=== PATIENT | female | born 1945 | race African-American/Black ===

== ENCOUNTER → 2018-05-03 | Day surgery (SDC) | payer OTHER, MEDICARE ==
[2018-05-01 12:27] LABS: BASOPHILS # (AUTO) 0.1 (0.0-0.1); BASOPHILS % 0.8 % (0.0-1.0); EOSINOPHILS # (AUTO) 0.2 (0.0-0.4); EOSINOPHILS % 1.6 % (0.0-6.0); HEMATOCRIT 31.6 % (34.2-44.1); HEMOGLOBIN 9.4 g/dL (12.0-16.0); LYMPHOCYTES # (AUTO) 3.2 (1.0-3.2); LYMPHOCYTES % 34.8 % (18.0-39.1); MEAN CORPUSCULAR HEMOGLOBIN 19.8 pg (28-32); MEAN CORPUSCULAR HGB CONC 29.7 g/dL (31-35); MEAN CORPUSCULAR VOLUME 66.5 fL (81-99); MONOCYTES # (AUTO) 0.8 (0.2-0.8); MONOCYTES % 8.2 % (4.4-11.3); NEUTROPHILS % 54.3 % (38.7-80.0); PLATELET COUNT 246 x10e3/uL (140-360); RED BLOOD COUNT 4.75 x10e6/uL (3.6-5.1); RED CELL DISTRIBUTION WIDTH 18.6 % (11.7-14.4)
[~2018-05-03] MED LIST: CIPRO500 MG PO; GLIPIZIDE5 MG PO; LOSARTAN POTAS100 MG PO; METOPROLOL SUCC50 MG PO; MULTI-VITAMIN1 EACH PO; NIFEDIPINE10 MG PO; PROPOFOL IV EMULSION 10 MG/ML 20 ML VIAL ONE; SIMVASTATIN20 MG PO
--- OUTSIDE RECORDS SUMMARY | 2018-05-03 06:55 | XMS REPORT | Clinical Summary ---
Author Author [facility] Organization [facility] Address Unknown Phone Unavailable Care Team Providers Care Chairman & Chief Executive Officer Name Role Phone Mateusz Camacho MD PCP Allergies No Known Allergies Medications End Date Status Medication Sig Dispensed Refills Start Date 04/07/2018 metroNIDAZOLE (FLAGYL) Take 1 tablet 21 tablet 0 500 MG tablet (500 mg 8 total) by mouth 3 (three) times a day for 7 days. 04/10/2018 ciprofloxacin (CIPRO) 500 Take 1 tablet 20 tablet 0 MG tablet (500 mg 8 total) by mouth 2 (two) times a day for 10 days. 05/01/2018 NIFEdipine XL (PROCARDIA Take 1 tablet 30 tablet 0 XL) 30 MG 24 hr tablet (30 mg total) 8 by mouth daily for 30 days. Active Problems Problem Noted Date C. difficile colitis 03/31/2018 Hydroureter 03/31/2018 Elevated lactic acid level 03/27/2018 Anemia 03/27/2018 Overview: Added automatically from request for surgery [id number] Heme positive stool 03/27/2018 Overview: Added automatically from request for surgery [id number] Hematochezia 03/27/2018 Overview: Added automatically from request for surgery [id number] Encounters Care Team Description Date Type Specialty Viet Lloyd MD COLONOSCOPY with bx and inject with 1cc of spot dye 03/30/2018 Surgery Gastroenterology [place] MD 03/30/2018 Anesthesia Gastroenterology Event Viet Lloyd MD ESOPHAGOGASTRODUODENOSCOPY (EGD) with bx 03/29/2018 Surgery Gastroenterology [place] MD 03/29/2018 Anesthesia Gastroenterology Event Leonidas Rosa MD BuiMarcy MD Elevated lactic acid level (Primary Dx); Hyperglycemia; Anemia, unspecified type; Non-insulin dependent type 2 diabetes mellitus (HCC); Secondary hypertension; Hydroureter; Renal calculus, bilateral; Heme positive stool; Hematochezia 03/27/2018 [facility] General Internal Medicine - Encounter 03/31/2018 after 05/02/2017 Social History Date Tobacco Use Types Packs/Day Years Used Never Smoker Smokeless Tobacco: Never Used Alcohol Use Drinks/Week oz/Week Comments No Sex Assigned at Date Recorded Not on file Industry Job Start Date Occupation Not on file Not on file Not on file Travel End Travel History Travel Start No recent travel history available. Last Filed Vital Signs Time Taken Vital Sign Reading 03/31/2018 11:33 AM [employer] ENGINE[employer] Blood Pressure 137/72 03/31/2018 11:33 AM SALVAGE ENGINEER Pulse 76 03/31/2018 11:33 AM SALVAGE ENGINEER Temperature 36.3 C (97.3 F) 03/31/2018 11:33 AM SALVAGE ENGINEER Respiratory Rate 17 03/31/2018 11:33 AM SALVAGE ENGINEER Oxygen Saturation 100% - Inhaled Oxygen - Concentration 03/27/2018 1:25 AM SALVAGE ENGINEER Weight 65.8 kg (145 lb) 03/27/2018 1:25 AM SALVAGE ENGINEER Height 162.6 cm (5' 4") 03/27/2018 1:25 AM SALVAGE ENGINEER Body Mass Index 24.89 Plan of Treatment Health Maintenance Due Date Last Done Comments DIABETIC RETINAL EYE EXAM 1945 DIABETIC FOOT EXAM 12/03/1957 URINE MICROALBUMIN 12/03/1957 SHINGRIX VACCINE (1 of 2) 12/03/1997 ZOSTER VACCINE 2007 PNEUMOCOCCAL 12/03/2012 POLYSACCHARIDE VACCINE AGE 65 AND OVER PNEUMOCOCCAL-13 12/03/2012 BREAST CANCER SCREENING 08/21/2015 08/20/2013, 07/16/2013 INFLUENZA VACCINE 12/21/2017 COLON CANCER SCREENING 03/28/2028 03/28/2018 Procedures Comments Procedure Name Priority Date/Time Associated Diagnosis POC GLUCOSE Routine 03/31/2018 11:32 AM SALVAGE ENGINEER HEMOGLOBIN & HEMATOCRIT STAT 03/31/2018 10:05 AM SALVAGE ENGINEER POC GLUCOSE Routine 03/31/2018 7:08 AM SALVAGE ENGINEER ESTIMATED GFR Routine 03/31/2018 5:09 AM SALVAGE ENGINEER HEPATIC FUNCTION PANEL Routine 03/31/2018 5:09 AM SALVAGE ENGINEER HC COMPLETE BLD COUNT Routine 03/31/2018 W/AUTO DIFF 5:09 AM SALVAGE ENGINEER BASIC METABOLIC PANEL Routine 03/31/2018 5:09 AM SALVAGE ENGINEER POC GLUCOSE Routine 03/30/2018 10:06 PM SALVAGE ENGINEER POC GLUCOSE Routine 03/30/2018 4:[address] ABDOMEN PELVIS WO STAT 03/30/2018 CONTRAST 1:07 PM SALVAGE ENGINEER POC GLUCOSE Routine 03/30/2018 1:04 PM SALVAGE ENGINEER TOTAL IRON BINDING STAT 03/30/2018 CAPACITY 12:45 PM SALVAGE ENGINEER FERRITIN LEVEL STAT 03/30/2018 12:45 PM SALVAGE ENGINEER VITAMIN B12 LEVEL STAT 03/30/2018 12:45 PM SALVAGE ENGINEER COLONOSCOPY 03/30/2018 Hematochezia 12:00 PM [employer]VAGE ENGINEER SURGICAL PATHOLOGY Routine 03/30/2018 REQUEST 11:19 AM SALVAGE ENGINEER POC GLUCOSE Routine 03/30/2018 5:21 AM SALVAGE ENGINEER POC GLUCOSE Routine 03/29/2018 10:06 PM SALVAGE ENGINEER POC GLUCOSE Routine 03/29/2018 3:57 PM SALVAGE ENGINEER SURGICAL PATHOLOGY Routine 03/29/2018 REQUEST 2:05 PM SALVAGE ENGINEER ESOPHAGOGASTRODUODENOSCOP 03/29/2018 Anemia, unspecified type Y (EGD) 12:30 PM SALVAGE ENGINEER Heme positive stool ESTIMATED GFR STAT 03/29/2018 10:10 AM SALVAGE ENGINEER HEPATIC FUNCTION PANEL STAT 03/29/2018 10:10 AM SALVAGE ENGINEER HC COMPLETE BLD COUNT STAT 03/29/2018 W/AUTO DIFF 10:10 AM SALVAGE ENGINEER BASIC METABOLIC PANEL STAT 03/29/2018 10:10 AM SALVAGE ENGINEER POC GLUCOSE Routine 03/29/2018 6:08 AM SALVAGE ENGINEER XR ABDOMEN 1 VW PORTABLE Routine 03/28/2018 6:51 PM SALVAGE ENGINEER POC GLUCOSE Routine 03/28/2018 6:35 PM SALVAGE ENGINEER POC GLUCOSE Routine 03/28/2018 5:05 PM SALVAGE ENGINEER POC GLUCOSE Routine 03/28/2018 12:21 PM SALVAGE ENGINEER HEMOGLOBIN & HEMATOCRIT STAT 03/28/2018 11:34 AM SALVAGE ENGINEER POC GLUCOSE Routine 03/28/2018 11:15 AM SALVAGE ENGINEER OCCULT BLOOD, STOOL Routine 03/28/2018 10:45 AM SALVAGE ENGINEER GASTROINTESTINAL PANEL Routine 03/28/2018 10:45 AM SALVAGE ENGINEER POC GLUCOSE Routine 03/28/2018 8:57 AM SALVAGE ENGINEER ESTIMATED GFR Routine 03/28/2018 5:30 AM SALVAGE ENGINEER HEPATIC FUNCTION PANEL Routine 03/28/2018 5:30 AM SALVAGE ENGINEER VITAMIN B12 LEVEL Routine 03/28/2018 5:30 AM SALVAGE ENGINEER FERRITIN LEVEL Routine 03/28/2018 5:30 AM SALVAGE ENGINEER HEMOGLOBIN A1C Routine 03/28/2018 5:30 AM SALVAGE ENGINEER HC COMPLETE BLD COUNT Routine 03/28/2018 W/AUTO DIFF 5:30 AM SALVAGE ENGINEER BASIC METABOLIC PANEL Routine 03/28/2018 5:30 AM SALVAGE ENGINEER POC GLUCOSE Routine 03/27/2018 9:42 PM SALVAGE ENGINEER POC GLUCOSE Routine 03/27/2018 5:23 PM SALVAGE ENGINEER POC GLUCOSE Routine 03/27/2018 11:22 AM SALVAGE ENGINEER ESTIMATED GFR STAT 03/27/2018 8:31 AM SALVAGE ENGINEER PHOSPHORUS LEVEL STAT 03/27/2018 8:31 AM SALVAGE ENGINEER MAGNESIUM LEVEL STAT 03/27/2018 8:31 AM SALVAGE ENGINEER AMYLASE LEVEL STAT 03/27/2018 8:31 AM SALVAGE ENGINEER LIPASE LEVEL STAT 03/27/2018 8:31 AM SALVAGE ENGINEER HC COMPLETE BLD COUNT STAT 03/27/2018 W/AUTO DIFF 8:31 AM SALVAGE ENGINEER BASIC METABOLIC PANEL STAT 03/27/2018 8:31 AM SALVAGE ENGINEER LACTIC ACID LEVEL, SEPSIS Timed 03/27/2018 - NOW AND REPEAT 2X EVERY 8:31 AM SALVAGE ENGINEER 3 HOURS LACTIC ACID LEVEL, SEPSIS Timed 03/27/2018 - NOW AND REPEAT 2X EVERY 5:01 AM SALVAGE ENGINEER [address] ABDOMEN PELVIS W STAT 03/27/2018 CONTRAST 4:07 AM SALVAGE ENGINEER BETA HYDROXYBUTYRATE Routine 03/27/2018 3:42 AM SALVAGE ENGINEER VENOUS BLOOD GAS Routine 03/27/2018 3:42 AM SALVAGE ENGINEER URINALYSIS SCREEN AND STAT 03/27/2018 MICROSCOPY, WITH REFLEX 2:30 AM SALVAGE ENGINEER TO CULTURE URINE CULTURE STAT 03/27/2018 2:30 AM SALVAGE ENGINEER LIPASE LEVEL Routine 03/27/2018 1:57 AM SALVAGE ENGINEER LACTIC ACID LEVEL, SEPSIS STAT 03/27/2018 - NOW AND REPEAT 2X EVERY 1:57 AM SALVAGE ENGINEER 3 HOURS ESTIMATED GFR Routine 03/27/2018 1:57 AM SALVAGE ENGINEER COMPREHENSIVE METABOLIC Routine 03/27/2018 PANEL 1:57 AM SALVAGE ENGINEER HC COMPLETE BLD COUNT Routine 03/27/2018 W/AUTO DIFF 1:57 AM SALVAGE ENGINEER ECG ED PRELIMINARY Routine 03/27/2018 INTERPRETATION 1:56 AM SALVAGE ENGINEER ECG 12-LEAD STAT 03/27/2018 1:48 AM SALVAGE ENGINEER after 05/02/2017 Results * POC glucose (03/31/2018 11:32 AM SALVAGE ENGINEER) Only the most recent of 17 results within the time period is included. POC glucose 256 (H) 65 - 100 mg/dL [facility] Comment: PATHOLOGY AND Meter ID: [id number] GENOMIC MEDICINE User Experience Team Lead: Maria E Wallace Performing Organization Address City/[facility] Corporationcode Phone Number [facility] [place] [place] [phone] PATHOLOGY AND [employer] MEDICINE * Hemoglobin & hematocrit (03/31/2018 10:05 AM SALVAGE ENGINEER) Only the most recent of 2 results within the time period is included. HGB 9.2 (L) 11.5 - 15.3 g/dL [facility] OF PATHOLOGY AND GENOMIC MEDICINE HCT 31.0 (L) 34.0 - 45.0 % [facility] OF PATHOLOGY AND [employer] MEDICINE Specimen Blood Performing Organization Address City/[facility] Corporationcode Phone Number [facility] [address] [facility] [place] [place] [phone] PATHOLOGY AND [employer] MEDICINE * Estimated GFR (03/31/2018 5:09 AM SALVAGE ENGINEER) Only the most recent of 5 results within the time period is included. Estimated GFR 59 (A) mL/min/1.73 m2 [facility] Comment: PATHOLOGY AND [employer] GENOMIC MEDICINE rpretation G1 >=90 Normal or high G2 60-89Mildly decreased [id number] Mildly to moderately decreased [id number] Moderately to severely decreased G4 15-29Severely decreased G5 <15Kidney failure The eGFR was calculated using the Chronic Kidney Disease Epidemiology Collaboration (CKD-EPI) equation. Interpretation is based on recommendations of the National Kidney Foundation-Kidney Disease Outcomes Quality Initiative (NKF-KDOQI) published in 2014. Specimen Plasma specimen Performing Organization Address City/[facility] Corporationcode Phone Number [facility] [place] [phone] PATHOLOGY AND [employer] MEDICINE * CBC with platelet and differential (03/31/2018 5:09 AM SALVAGE ENGINEER) Only the most recent of 5 results within the time period is included. WBC 6.8 4.2 - 11.0 k/uL [facility] OF PATHOLOGY AND GENOMIC MEDICINE RBC 4.23 4.04 - 5.86 m/uL [facility] OF PATHOLOGY AND GENOMIC MEDICINE HGB 8.3 (L) 11.5 - 15.3 g/dL [facility] OF PATHOLOGY AND GENOMIC MEDICINE HCT 27.7 (L) 34.0 - 45.0 % [facility] OF PATHOLOGY AND GENOMIC MEDICINE MCV 65.5 (L) 80.0 - 98.0 fL [facility] OF PATHOLOGY AND GENOMIC MEDICINE MCH 19.6 (L) 27.0 - 34.0 pg [facility] OF PATHOLOGY AND GENOMIC MEDICINE MCHC 30.0 (L) 31.5 - 36.5 g/dL [facility] OF PATHOLOGY AND GENOMIC MEDICINE RDW - SD 44.4 37.0 - 51.0 fL [facility] OF PATHOLOGY AND GENOMIC MEDICINE MPV 10.5 (H) 7.4 - 10.4 fL [facility] OF PATHOLOGY AND GENOMIC MEDICINE Platelet count 227 150 - 400 k/uL [facility] PATHOLOGY AND GENOMIC MEDICINE Nucleated RBC 0.00 /100 WBC [facility] OF PATHOLOGY AND GENOMIC MEDICINE Neutrophils 46.1 36.0 - 66.0 % [facility] OF PATHOLOGY AND GENOMIC MEDICINE Lymphocytes 39.4 24.0 - 44.0 % [facility] OF PATHOLOGY AND GENOMIC MEDICINE Monocytes 11.0 (H) 0.0 - 6.0 % [facility] OF PATHOLOGY AND GENOMIC MEDICINE Eosinophils 2.5 0.0 - 6.0 % [facility] OF PATHOLOGY AND GENOMIC MEDICINE Basophils 0.7 0.0 - 1.2 % [facility] PATHOLOGY AND GENOMIC MEDICINE Immature granulocytes 0.3 0.0 - 1.0 % [facility] OF PATHOLOGY AND GENOMIC MEDICINE Specimen Blood Performing Organization Address City/State/Zipcode Phone Number [facility] [address] [place] [address] PATHOLOGY AND GENOMIC MEDICINE * Hepatic function panel (03/31/2018 5:09 AM SALVAGE ENGINEER) Only the most recent of 3 results within the time period is included. Albumin 3.3 (L) 3.5 - 5.0 g/dL [facility] PATHOLOGY AND GENOMIC MEDICINE Total bilirubin 0.3 0.2 - 1.2 mg/dL [facility] OF PATHOLOGY AND GENOMIC MEDICINE Bilirubin direct <0.2 0.0 - 0.4 mg/dL [facility] OF PATHOLOGY AND GENOMIC MEDICINE Alkaline phosphatase 48 0 - 104 U/L [facility] OF PATHOLOGY AND GENOMIC MEDICINE Protein 6.3 6.3 - 8.3 g/dL [facility] OF PATHOLOGY AND GENOMIC MEDICINE ALT 9 5 - 50 U/L [facility] OF PATHOLOGY AND GENOMIC MEDICINE AST 16 10 - 35 U/L [facility] PATHOLOGY AND [employer] MEDICINE Specimen Plasma specimen Performing Organization Address [facility] Corporationcowy Phone Number [place] [address] [address] [place] [address] AND [employer] [facility] * Basic metabolic panel (03/31/2018 5:09 AM SALVAGE ENGINEER) Only the most recent of 4 results within the time period is included. Sodium 143 135 - 150 mEq/L [facility] OF PATHOLOGY AND GENOMIC MEDICINE Potassium 3.4 (L) 3.5 - 5.0 mEq/L [facility] OF PATHOLOGY AND GENOMIC MEDICINE Chloride 106 98 - 112 mEq/L [facility] OF PATHOLOGY AND [employer] MEDICINE CO2 23 (L) 24 - 31 mmol/L [facility] OF PATHOLOGY AND [employer] MEDICINE Anion gap 14@ANIO 7 - 15 mEq/L [facility] OF PATHOLOGY AND GENOMIC MEDICINE BUN 7 7 - 18 mg/dL [facility] OF PATHOLOGY AND GENOMIC MEDICINE Creatinine 1.10 (H) 0.50 - 0.90 mg/dL [facility] OF PATHOLOGY AND GENOMIC MEDICINE Glucose 173 (H) 65 - 100 mg/dL [facility] PATHOLOGY AND [employer] MEDICINE Calcium 8.9 8.8 - 10.2 mg/dL [facility] OF PATHOLOGY [facility] [employer] MEDICINE Specimen Plasma specimen Performing Organization Address City/[facility] Phone Number [place] [address] [address] [place] [address] [employer] [facility] * CT Abdomen Pelvis Wo Contrast (03/30/2018 1:07 PM SALVAGE ENGINEER) Narrative Performed At EXAMINATION:CT ABDOMEN PELVIS WO CONTRAST [facility] CLINICAL HISTORY:renal protocol follow up for hydronephrosishaving more abdomeinal pain TECHNIQUE: Multiple axial images of the abdomen and pelvis were obtained without intravenous administration of iodinated contrast. Sagittal and coronal computerized reformatted images were also obtained. The lack of intravenous contrast reduces the sensitivity of detecting solid organ disease. CT imaging was performed with iterative reconstruction technique and/or automated exposure control to reduce radiation dose. COMPARISON:CT abdomen and pelvis 27 March 2018 FINDINGS: The lung bases are clear. No free intraperitoneal air or fluid. Small hiatal hernia Abdomen: Liver grossly unremarkable. Spleen normal size. Adrenal glands normal size. Layering gravel-like stones versus sludge within the gallbladder. No gross biliary dilatation. Pancreas grossly unremarkable. Abdominal aorta normal caliber with scattered atherosclerotic change. No bowel obstruction in the abdomen. Small fat-containing umbilical hernia. Decreasing hydronephrosis on the right. Mild residual pelvicalyceal fullness on the right side. No obstructing tract calculus. Mild renal pelvic caliectasis on the left unchanged. No obstructing calculus. Numerous calyceal calculi on the left as on previous. Punctate upper pole calyceal calculus on the right unchanged as well Pelvis: No bowel obstruction. No diverticulitis. Normal appendix. No ureteral distention in the pelvis. No tract calculi Scattered atherosclerotic change. Bladder grossly unremarkable as is the uterus. No adnexal mass. No free fluid in the cul-de-sac No pelvic mass or adenopathy. Slight degenerative changes lumbar spine as on previous IMPRESSION: Decreasing hydronephrosis on the right. No obstructing tract calculi Bilateral nonobstructing calyceal calculi bilaterally left greater than right Mild pelvocaliectasis on the left unchanged. No left-sided obstructing calculus. Small fat-containing umbilical hernia Small layering gallstones versus biliary sludge Scattered atherosclerosis [id number] Procedure Note Hm Interface, Radiology Results Incoming - 03/30/2018 1:22 PM SALVAGE ENGINEER EXAMINATION: CT ABDOMEN PELVIS WO CONTRAST CLINICAL HISTORY: renal protocol follow up for hydronephrosis having more abdomeinal pain TECHNIQUE: Multiple axial images of the abdomen and pelvis were obtained without intravenous administration of iodinated contrast. Sagittal and coronal computerized reformatted images were also obtained. The lack of intravenous contrast reduces the sensitivity of detecting solid organ disease. CT imaging was performed with iterative reconstruction technique and/or automated exposure control to reduce radiation dose. COMPARISON: CT abdomen and pelvis 27 March 2018 FINDINGS: The lung bases are clear. No free intraperitoneal air or fluid. Small hiatal hernia Abdomen: Liver grossly unremarkable. Spleen normal size. Adrenal glands normal size. Layering gravel-like stones versus sludge within the gallbladder. No gross biliary dilatation. Pancreas grossly unremarkable. Abdominal aorta normal caliber with scattered atherosclerotic change. No bowel obstruction in the abdomen. Small fat-containing umbilical hernia. Decreasing hydronephrosis on the right. Mild residual pelvicalyceal fullness on the right side. No obstructing tract calculus. Mild renal pelvic caliectasis on the left unchanged. No obstructing calculus. Numerous calyceal calculi on the left as on previous. Punctate upper pole calyceal calculus on the right unchanged as well Pelvis: No bowel obstruction. No diverticulitis. Normal appendix. No ureteral distention in the pelvis. No tract calculi Scattered atherosclerotic change. Bladder grossly unremarkable as is the uterus. No adnexal mass. No free fluid in the cul-de-sac No pelvic mass or adenopathy. Slight degenerative changes lumbar spine as on previous IMPRESSION: Decreasing hydronephrosis on the right. No obstructing tract calculi Bilateral nonobstructing calyceal calculi bilaterally left greater than right Mild pelvocaliectasis on the left unchanged. No left-sided obstructing calculus. Small fat-containing umbilical hernia Small layering gallstones versus biliary sludge Scattered atherosclerosis [id number] Performing Organization Address [facility] Phone Number [facility] [address] [place] [address] * Total iron binding capacity (03/30/2018 12:45 PM SALVAGE ENGINEER) Iron level 41 37 - 148 ug/dL [facility] OF PATHOLOGY AND GENOMIC MEDICINE Iron binding capacity 268 (L) 271 - 474 ug/dL [facility] OF PATHOLOGY AND GENOMIC MEDICINE % Saturation 15.3 15.0 - 38.0 % [facility] OF PATHOLOGY AND GENOMIC MEDICINE Specimen Plasma specimen Performing Organization Address [facility] [place] [address] PATHOLOGY AND GENOMIC MEDICINE * Ferritin level (03/30/2018 12:45 PM SALVAGE ENGINEER) Only the most recent of 2 results within the time period is included. Ferritin level 195 (H) 13 - 150 ng/mL [facility] OF PATHOLOGY AND GENOMIC MEDICINE Specimen Serum Performing Organization Address [facility] [place] [address] PATHOLOGY AND GENOMIC MEDICINE * Vitamin B12 level (03/30/2018 12:45 PM SALVAGE ENGINEER) Only the most recent of 2 results within the time period is included. Vitamin B12 1,407 (H) 231 - 931 pg/mL [facility] OF Comment: PATHOLOGY AND Significant overlap exists GENOMIC MEDICINE between normal and deficiency states. However, most patients with deficiencies will have Serum B12 <200 pg/mL. Specimen Serum Performing Organization Address City/State/Zipcode Phone Number [address] [place] [address] PATHOLOGY AND GENOMIC MEDICINE * Surgical pathology request (03/30/2018 11:19 AM SALVAGE ENGINEER) Only the most recent of 2 results within the time period is included. [facility] PATHOLOGY AND GENOMIC MEDICINE Surgical pathology report See link below for PDF Lab [facility] OF Report PATHOLOGY AND GENOMIC MEDICINE Result status This is Final Report for [facility] OF [id number] PATHOLOGY AND GENOMIC MEDICINE Performing Organization Address [facility] Corporationcode Phone Number [address] [place] [address] PATHOLOGY AND GENOMIC MEDICINE * XR Abdomen 1 Vw Portable (03/28/2018 6:51 PM SALVAGE ENGINEER) Narrative Performed At EXAMINATION:XR ABDOMEN 1 VW PORTABLE [facility] CLINICAL HISTORY:diarrhea COMPARISON:March 27, 2018 CT abdomen IMPRESSION: The bowel gas pattern is nonobstructive. No gross colonic or small bowel wall thickening. No evidence of ascites. Grossly intact skeleton. [facility]-[id number] Procedure Note Hm Interface, Radiology Results Incoming - 03/28/2018 7:06 PM SALVAGE ENGINEER EXAMINATION: XR ABDOMEN 1 VW PORTABLE CLINICAL HISTORY: diarrhea COMPARISON: March 27, 2018 CT abdomen IMPRESSION: The bowel gas pattern is nonobstructive. No gross colonic or small bowel wall thickening. No evidence of ascites. Grossly intact skeleton. [facility]-[id number] Performing Organization Address City/State/Zipcode Phone Number [facility] [address] [place] [address] * Gastrointestinal panel (03/28/2018 10:45 AM SALVAGE ENGINEER) Gastrointestinal panel Positive for C. difficile [facility] DEPARTMENT OF toxin PATHOLOGY AND GENOMIC MEDICINE Negative for all other pathogens tested: Negative for Salmonella Negative for Campylobacter Negative for Diarrheagenic E coli/Shigella Negative for Shiga-like toxin-producing E coli Negative for Plesiomonas shigelloides Negative for Yersinia enterocolitica Negative for Vibrio species Negative for Cryptosporidium Negative for Giardia lamblia Negative for Cyclospora cayeteanensis Negative for Entamoeba histolytica Negative for Adenovirus F 40/41 Negative for Astrovirus Negative for Norovirus GI/GII Negative for Rotavirus A Negative for Sapovirus Negative for E coli 0157 This real-time PCR assay detects the presence of nucleic acids (RNA or DNA) for the gastrointestinal pathogens listed. A result of "Not-detected" does not exclude the possibility of the presence of one or more pathogens at concentrations less than the detectable limits of the assay. (A) Comment: Specimen Information Specimen Source: Stool Specimen Site: Nonpreserved Specimen Stool - Nonpreserved Performing Organization Address City/State/Zipcode Phone Number [facility] DEPARTMENT OF [address] [place] [address] PATHOLOGY AND GENOMIC MEDICINE * Occult blood, stool (03/28/2018 10:45 AM SALVAGE ENGINEER) Occult blood, stool Positive for Occult blood (A) [facility] Comment: PATHOLOGY AND Specimen Information GENOMIC MEDICINE Specimen Source: Stool Specimen Site: Nonpreserved Specimen Stool - Nonpreserved Performing Organization Address City/[facility] Phone Number [facility] [address] [place] [address] PATHOLOGY AND GENOMIC MEDICINE * Hemoglobin A1c (03/28/2018 5:30 AM SALVAGE ENGINEER) Hemoglobin A1C 7.2 (H) 4.0 - 6.0 % [facility] Comment: PATHOLOGY AND GENOMIC MEDICINE Less than 6% - Goal of therapy for Type II Diabetes Less than 7%-Goal of therapy for Type I Diabetes Less than 8%-Accepta ble control for Type I or Type II Diabetes Greater than 8%-Unacceptabl e control; action indicated. ([id number]) Specimen Blood Performing Organization Address City/[facility] Corporationcode Phone Number [facility] OF [address] [place] [address] PATHOLOGY AND GENOMIC MEDICINE * Lactic acid level, SEPSIS - Now and repeat 2x every 3 hours (03/27/2018 8:31 AM SALVAGE ENGINEER) Only the most recent of 3 results within the time period is included. Lactic acid 1.5 0.5 - 2.2 mmol/L [facility] PATHOLOGY AND GENOMIC MEDICINE Specimen Blood Performing Organization Address City/[facility] Corporationcode Phone Number [facility] [place] [address] [place] [address] PATHOLOGY AND GENOMIC MEDICINE * Phosphorus level (03/27/2018 8:31 AM SALVAGE ENGINEER) Phosphorus 2.5 2.4 - 4.5 mg/dL [facility] OF PATHOLOGY AND GENOMIC MEDICINE Specimen Plasma specimen Performing Organization Address [facility] Phone Number [facility] [address] [place] [address] PATHOLOGY AND GENOMIC MEDICINE * Magnesium level (03/27/2018 8:31 AM SALVAGE ENGINEER) Magnesium 1.40 (L) 1.60 - 2.40 mg/dL [facility] OF PATHOLOGY AND GENOMIC MEDICINE Specimen Plasma specimen Performing Organization Address [facility] Phone Number [facility] [address] [place] [address] PATHOLOGY AND GENOMIC MEDICINE * Lipase level (03/27/2018 8:31 AM SALVAGE ENGINEER) Only the most recent of 2 results within the time period is included. Lipase 28 13 - 60 U/L [facility] OF PATHOLOGY AND GENOMIC MEDICINE Specimen Plasma specimen Performing Organization Address [facility] Phone Number [facility] [address] [place] [address] PATHOLOGY AND GENOMIC MEDICINE * Amylase level (03/27/2018 8:31 AM SALVAGE ENGINEER) Amylase 53 28 - 100 U/L [facility] OF PATHOLOGY AND GENOMIC MEDICINE Specimen Plasma specimen Performing Organization Address [facility] Phone Number [facility] [address] [place] [address] PATHOLOGY AND GENOMIC MEDICINE * CT Abdomen Pelvis W Contrast (03/27/2018 4:07 AM SALVAGE ENGINEER) Narrative Performed At Examination:CT ABDOMEN PELVIS W CONTRAST [facility]IANT Clinical History: epigastric and suprapubic pain in elderly pt Comparison: None. Findings: CT scans are performed using radiation dose reduction techniques.Technical factors are evaluated and adjusted to ensure appropriate moderation of exposure.Automated dose management technology is applied to adjust radiation exposure while achieving a diagnostic quality image. CT scan of the abdomen and pelvis was performed after intravenous contrast. The graft the liver, spleen, pancreas, gallbladder, and adrenal glands are unremarkable. Multiple left intrarenal calculi are noted. The largest measures up to 7 mm. No left hydronephrosis is seen. There is mild to moderate right hydronephrosis and hydroureter noted. No ureteral calculus is seen on the right side. There is a 1 mm calculus in the right upper pole of the kidney. The appendix is unremarkable. Scattered colonic diverticuli are noted. No bowel thickening or fat stranding is seen. No bowel dilatation is seen. No free air or fluid is seen. Urinary bladder is unremarkable. The visualized lung bases are clear. Small umbilical hernia is noted which contains only fat. IMPRESSION: 1. Multiple left nonobstructing intrarenal calculi. 2. There is mild to moderate right hydronephrosis and hydroureter but no urinary calculus is seen. This may represent a passed calculus. 3. Right 1 mm nonobstructing intrarenal calculus. 3. Small umbilical hernia containing only fat. [facility]-[id number] Procedure Note [facility], Radiology Results Incoming - 03/27/2018 4:14 AM SALVAGE ENGINEER Examination: CT ABDOMEN PELVIS W CONTRAST Clinical History: epigastric and suprapubic pain in elderly pt Comparison: None. Findings: CT scans are performed using radiation dose reduction techniques. Technical factors are evaluated and adjusted to ensure appropriate moderation of exposure. Automated dose management technology is applied to adjust radiation exposure while achieving a diagnostic quality image. CT scan of the abdomen and pelvis was performed after intravenous contrast. The graft the liver, spleen, pancreas, gallbladder, and adrenal glands are unremarkable. Multiple left intrarenal calculi are noted. The largest measures up to 7 mm. No left hydronephrosis is seen. There is mild to moderate right hydronephrosis and hydroureter noted. No ureteral calculus is seen on the right side. There is a 1 mm calculus in the right upper pole of the kidney. The appendix is unremarkable. Scattered colonic diverticuli are noted. No bowel thickening or fat stranding is seen. No bowel dilatation is seen. No free air or fluid is seen. Urinary bladder is unremarkable. The visualized lung bases are clear. Small umbilical hernia is noted which contains only fat. IMPRESSION: 1. Multiple left nonobstructing intrarenal calculi. 2. There is mild to moderate right hydronephrosis and hydroureter but no urinary calculus is seen. This may represent a passed calculus. 3. Right 1 mm nonobstructing intrarenal calculus. 3. Small umbilical hernia containing only fat. [facility]-[id number] Performing Organization Address City/State/Zipcode Phone Number [address] [place] [address] * Beta hydroxybutyrate (03/27/2018 3:42 AM SALVAGE ENGINEER) Beta hydroxybutyrate 0.54 (H) 0.02 - 0.27 mmol/L [facility] PATHOLOGY AND GENOMIC MEDICINE Specimen Blood Performing Organization Address City/[facility]/Zipcode Phone Number [address] [place] [address] PATHOLOGY AND GENOMIC MEDICINE * Venous blood gas (03/27/2018 3:42 AM SALVAGE ENGINEER) User Experience Team Lead LMS [facility] PATHOLOGY AND GENOMIC MEDICINE Collection site LAC [facility] OF PATHOLOGY AND GENOMIC MEDICINE O2 therapy ROOM AIR [facility] OF PATHOLOGY AND GENOMIC MEDICINE pH, venous 7.341 7.320 - 7.420 units [facility] OF PATHOLOGY AND GENOMIC MEDICINE pCO2, venous 39.6 (L) 45.0 - 51.0 mmHg [facility] OF PATHOLOGY AND GENOMIC MEDICINE pO2, venous 27.4 25.0 - 40.0 mmHg [facility] OF PATHOLOGY AND GENOMIC MEDICINE O2 saturation, venous 45.9 40.0 - 70.0 % [facility] OF PATHOLOGY AND GENOMIC MEDICINE Base excess, venous -4.4 (L) -2.0 - 2.0 mEq/L [facility] OF PATHOLOGY AND GENOMIC MEDICINE Bicarbonate 21.4 21.0 - 28.0 mEq/L [facility] OF PATHOLOGY AND GENOMIC MEDICINE O2 content 5.4 VOL% [facility] OF PATHOLOGY AND GENOMIC MEDICINE Carboxyhemoglobin 0.8 0.0 - 1.4 % [facility] Comment: PATHOLOGY AND Reference Ranges: GENOMIC MEDICINE Carboxyhemoglobin Non smoker: 0.0 - 2.0% Smoker: 2.1 - 5.0% Heavy smoker: 5.1 - 9% Methemoglobin 1.9 (H) 0.0 - 1.0 % [facility] OF PATHOLOGY AND GENOMIC MEDICINE Hemoglobin, blood gas 8.6 (L) 12.0 - 16.0 g/dL [facility] OF PATHOLOGY AND GENOMIC MEDICINE Specimen Blood Performing Organization Address City/[facility] Corporationcode Phone Number [facility] [address] [place] [address] PATHOLOGY AND GENOMIC MEDICINE * Urinalysis screen and microscopy, with reflex to culture (03/27/2018 2:30 AM SALVAGE ENGINEER) Specimen site Catheterized [facility] PATHOLOGY AND GENOMIC MEDICINE Color, UA Straw [facility] OF PATHOLOGY AND GENOMIC MEDICINE Appearance, UA Clear [facility] OF PATHOLOGY AND GENOMIC MEDICINE Specific gravity, UA 1.010 1.001 - 1.035 [facility] PATHOLOGY AND GENOMIC MEDICINE pH, UA 6.0 5.0 - 8.5 [facility] OF PATHOLOGY AND GENOMIC MEDICINE Protein, UA Negative Negative [facility] OF PATHOLOGY AND GENOMIC MEDICINE Glucose, UA Negative Negative [facility] OF PATHOLOGY AND GENOMIC MEDICINE Ketones, UA 1+ (A) Negative [facility] OF PATHOLOGY AND GENOMIC MEDICINE Bilirubin, UA Negative Negative [facility] OF PATHOLOGY AND GENOMIC MEDICINE Blood, UA Negative Negative [facility] OF PATHOLOGY AND GENOMIC MEDICINE Nitrite, UA Negative Negative [facility] OF PATHOLOGY AND GENOMIC MEDICINE Urobilinogen, UA Negative <2.0 [facility] OF PATHOLOGY AND GENOMIC MEDICINE Leukocyte esterase, UA Negative Negative [facility] OF PATHOLOGY AND GENOMIC MEDICINE WBC, UA 1 0 - 5 /HPF [facility] OF PATHOLOGY AND GENOMIC MEDICINE RBC, UA 1 0 - 5 /HPF [facility] PATHOLOGY AND GENOMIC MEDICINE Bacteria, UA None seen None seen [facility] OF PATHOLOGY AND GENOMIC MEDICINE Yeast, UA None seen [facility] OF PATHOLOGY AND GENOMIC MEDICINE Yeast with pseudohyphae, None seen [facility] OF UA PATHOLOGY AND GENOMIC MEDICINE Specimen Urine Performing Organization Address [facility] Corporationcode Phone Number [facility] [address] [place] [address] PATHOLOGY AND GENOMIC MEDICINE * Urine culture (03/27/2018 2:30 AM SALVAGE ENGINEER) Urine culture SEE COMMENTComment: [facility] Bacteriuria screen negative. PATHOLOGY AND GENOMIC MEDICINE Specimen Urine Performing Organization Address City/[facility]/Zipcode Phone Number [place] [address] [place] [address] PATHOLOGY AND GENOMIC MEDICINE * Comprehensive metabolic panel (03/27/2018 1:57 AM SALVAGE ENGINEER) Sodium 140 135 - 150 mEq/L [facility] PATHOLOGY AND GENOMIC MEDICINE Potassium 3.3 (L) 3.5 - 5.0 mEq/L [facility] OF PATHOLOGY AND GENOMIC MEDICINE Chloride 104 98 - 112 mEq/L [facility] OF PATHOLOGY AND GENOMIC MEDICINE CO2 17 (L) 24 - 31 mmol/L [facility] OF PATHOLOGY AND GENOMIC MEDICINE Anion gap 19@ANIO (H) 7 - 15 mEq/L [facility] PATHOLOGY AND GENOMIC MEDICINE BUN 15 7 - 18 mg/dL [facility] OF PATHOLOGY AND GENOMIC MEDICINE Creatinine 1.20 (H) 0.50 - 0.90 mg/dL [facility] PATHOLOGY AND GENOMIC MEDICINE Glucose 243 (H) 65 - 100 mg/dL [facility] OF PATHOLOGY AND GENOMIC MEDICINE Calcium 10.2 8.8 - 10.2 mg/dL [facility] OF PATHOLOGY AND GENOMIC MEDICINE Protein 7.5 6.3 - 8.3 g/dL [facility] OF PATHOLOGY AND GENOMIC MEDICINE Albumin 4.1 3.5 - 5.0 g/dL [facility] OF PATHOLOGY AND GENOMIC MEDICINE A/G ratio 1.2 0.7 - 3.8 [facility] PATHOLOGY AND GENOMIC MEDICINE Alkaline phosphatase 65 0 - 104 U/L [facility] OF PATHOLOGY AND GENOMIC MEDICINE AST 18 10 - 35 U/L [facility] PATHOLOGY AND GENOMIC MEDICINE ALT 16 5 - 50 U/L [facility] OF PATHOLOGY AND GENOMIC MEDICINE Total bilirubin 0.4 0.2 - 1.2 mg/dL [facility] OF PATHOLOGY AND GENOMIC MEDICINE Specimen Plasma specimen Performing Organization Address City/State/Zipcode Phone Number [facility] [address] [place] [address] PATHOLOGY AND GENOMIC MEDICINE * ECG ED Preliminary Interpretation - NOT AN ORDER (03/27/2018 1:56 AM SALVAGE ENGINEER) Narrative Performed At Leonidas Rosa MD 03/27/20187:38 PM ECG ED Preliminary Interpretation - Not an Order Performed by: LEONIDAS ROSA Authorized by: LEONIDAS ROSA ECG reviewed by ED Physician in the absence of a school librarian: yes Interpretation: Interpretation: normal Rate: ECG rate:67 ECG rate assessment: normal Rhythm: Rhythm: sinus rhythm Ectopy: Ectopy: none QRS: QRS axis:Normal QRS intervals:Normal Conduction: Conduction: normal ST segments: ST segments:Normal T waves: T waves: normal Other findings: Other findings: LVH Comments: Completed at 0148 on 03/27/18 * ECG 12 lead (03/27/2018 1:48 AM SALVAGE ENGINEER) Ventricular rate 67 [facility] Atrial rate 67 [facility] MO interval 160 [facility] QRSD interval 96 [facility] QT interval 408 [facility] QTC interval 431 [facility] P axis 1 89 [facility] QRS axis 1 0 [facility] T wave axis 29 [facility] EKG impression Normal sinus rhythm-Moderate [facility] voltage criteria for LVH, may be normal variant-Borderline ECG-In automated comparison with ECG of 23-APR-2014 10:57,-No significant change was found- Performing Organization Address City/State/Zipcode Phone Number [facility] [address] [place] [address] after 05/02/2017 Insurance Payer Benefit Subscriber ID Type Phone Address Plan / Group [facility] MEDIC[facility] UNITED/CAR xxxxxxxxx [facility] Christine [facility] Advance Directives Patient has advance care planning documents on file. For more information, aurora e contact: Smith Jaeger [address] [place] [address]
[2018-05-03 10:25] VITALS: BP 116/76
== END | disposition home or self-care (01) ==
LOC: OR 06:52
PROVIDERS: ATTEND Internal Medicine Gastroenterology
DX: D12.2 Benign neoplasm of ascending colon (principal); K64.8 Other hemorrhoids; K64.4 Residual hemorrhoidal skin tags; Z71.3 Dietary counseling and surveillance; E66.3 Overweight; I10 Essential (primary) hypertension; E11.9 Type 2 diabetes mellitus without complications; N20.0 Calculus of kidney; Z01.810 Encounter for preprocedural cardiovascular examination; Z01.812 Encounter for preprocedural laboratory examination; Z79.84 Long term (current) use of oral hypoglycemic drugs; Z68.25 Body mass index [BMI] 25.0-25.9, adult; Z87.891 Personal history of nicotine dependence; Z86.2 Personal history of diseases of the blood and blood-forming organs and certain disorders involving the immune mechanism
CPT/HCPCS: 36415 ×2; 45381; 45385; 82948; 85025; 93005; J2704; 44391; 45378

== ENCOUNTER → 2018-08-30 | Day surgery (SDC) | payer OTHER ==
[~2018-08-30] MED LIST changes: +CHELATED IRON PO; +DEXAMETHASONE SOD PHOS INJ 4 MG/ML VIAL ONE; +FENTANYL CITRATE/PF 100MCG/2 ML INJ ONE; +LEVOFLOXACIN 500MG/D5W 100ML 100 ML IV ONE; +LIDOCAINE HCL 2% LOCAL INJ 5 ML SDV VIAL INJ ONE; +MIDAZOLAM HCL 2 MG/2 ML VIAL ONE; +MONTELUKAST SOD10 MG PO; +NIFEDIPINE ER30 MG PO; +ONDANSETRON HCL INJ 2MG/ML 2ML 2 MG/ML VIAL ONE; +OXYBUTYNIN CHLOR5 MG PO; +SEVOFLURANE INHAL SOLN 250 ML PEN BTL ONE; +ULTRACET TABLE1 EACH PO; +VITAMIN C1000 MG PO
--- OUTSIDE RECORDS SUMMARY | 2018-08-30 09:38 | XMS REPORT | Clinical Summary ---
Author Author [facility] Organization [place] [facility] Address Unknown Phone Unavailable Care Team Providers Care Highway Inspector Name Role Phone Mateusz Camacho MD PCP Allergies No Known Allergies Medications End Date Status Medication Sig Dispensed Refills Start Date Active glipiZIDE (GLUCOTROL) 10 Take 10 mg by 0 MG tablet mouth 2 (two) times a day before meals. Active NIFEdipine XL (PROCARDIA Take 30 mg by 0 XL) 30 MG 24 hr tablet mouth daily. Active montelukast (SINGULAIR) Take 10 mg by 0 10 mg tablet mouth nightly. Active ferrous sulfate (IRON Take by 0 ORAL) mouth. Active ascorbic acid, vitamin C, Take 1,000 mg 0 (vitamin C) 1000 MG by mouth tablet daily. Active metoprolol tartrate Take 50 mg by 0 (LOPRESSOR) 50 mg tablet mouth 2 (two) times a day. 04/07/2018 metroNIDAZOLE (FLAGYL) Take 1 tablet 21 [...] Overview: Added automatically from request for surgery [id number] Heme positive stool 03/27/2018 Overview: Added automatically from request for surgery [id number] Hematochezia 03/27/2018 Overview: Added automatically from request for surgery [id number] Encounters Care Team Description Date Type Specialty Donnie Carter MD Calculus of kidney (Primary Dx) 08/28/2018 Transcribe Access Orders Ary Villalta MD 08/22/2018 Anesthesia General Surgery Event Donnie Carter MD Eswl With Cysto With Insertion Of Stent 08/22/2018 Surgery General Surgery Donnie Carter MD 08/22/2018 Hospital General Surgery Encounter Donnie Carter MD Preoperative testing (Primary Dx) 08/21/2018 Pre-Admit Pre-Admission Testing Testing Appointment Donnie Carter MD Uric acid nephrolithiasis (Primary Dx); Calculus of ureter 08/21/2018 Transcribe Access Orders Viet Lloyd MD COLONOSCOPY with bx and inject with 1cc of spot dye 03/30/2018 Surgery Gastroenterology [place] MD 03/30/2018 Anesthesia Gastroenterology Event Viet Lloyd MD ESOPHAGOGASTRODUODENOSCOPY (EGD) with bx 03/29/2018 Surgery Gastroenterology [place] MD 03/29/2018 Anesthesia Gastroenterology Event Leonidas Rosa MD MayMarcy MD Elevated lactic acid level (Primary Dx); Hyperglycemia; Anemia, unspecified type; Non-insulin dependent type 2 diabetes mellitus (HCC); Secondary hypertension; Hydroureter; Renal calculus, bilateral; Heme positive stool; Hematochezia 03/27/2018 [facility] General Internal Medicine - Encounter 03/31/2018 after 08/29/2017 Social History Date Tobacco Use Types Packs/Day Years Used Former Smoker Smokeless Tobacco: Never Used Comments: 50 years ago Alcohol Use Drinks/Week oz/Week Comments No Sex Assigned at Date Recorded Not on file Industry Job Start Date Occupation Not on file Not on file Not on file Travel End Travel History Travel Start No recent travel history available. Last Filed Vital Signs Time Taken Vital Sign Reading 08/22/2018 4:31 PM CDT Blood Pressure 153/76 08/22/2018 4:31 PM CDT Pulse 90 08/22/2018 4:31 PM CDT Temperature 36.4 C (97.6 F) 08/22/2018 4:31 PM CDT Respiratory Rate 18 08/22/2018 4:31 PM CDT Oxygen Saturation 99% - Inhaled Oxygen - Concentration 08/22/2018 12:00 PM CDT Weight 64.2 kg (141 lb 8 oz) 08/22/2018 12:00 PM CDT Height 162.6 cm (5' 4") 08/22/2018 12:00 PM CDT Body Mass Index 24.29 Plan of Treatment Health Maintenance Due Date Last Done Comments DIABETIC RETINAL EYE EXAM 12/03/1944 DIABETIC FOOT EXAM 12/03/1956 URINE MICROALBUMIN 12/03/1956 SHINGLES VACCINES (#1) 12/03/1996 65+ PNEUMOCOCCAL VACCINE 2011 (1 of 2 - PCV13) PNEUMOCOCCAL 2011 POLYSACCHARIDE VACCINE AGE 65 AND OVER BREAST CANCER SCREENING 08/21/2015 08/20/2013, 07/16/2013 INFLUENZA VACCINE 12/21/2018 COLON CANCER SCREENING 03/28/2028 03/28/2018 Implants Device Identifier Shelf Expiration Date Model / Serial / Lot Implanted Type Area Manufactur er 03/27/2021 192 133 / / [id number] Stent Uretl Polrs Ult 2drmtr 6fr Urological Left: Ureter, BSC 26cm Hydroplus W/O Gw - [id number] Implants [place] [facility] Implanted: 08/22/2018 (Quantity not or Sets on file) Procedures Comments Procedure Name Priority Date/Time Associated Diagnosis XR ABDOMEN 1 VW Routine 08/28/2018 Calculus of kidney 9:24 AM CDT POC GLUCOSE Routine 08/22/2018 4:09 PM CDT WY AN ELECTIVE Routine 08/22/2018 SUPRAGLOTTIC AIRWAY 2:58 PM CDT Procedure Note - Dayanara Soto CRNA - 08/22/2018 2:58 PM CDT Airway Date/Time: 08/22/2018 2:48 PM Performed by: Dayanara Soto CRNA Authorized by: Ary Villalta MD Location: OR Urgency: Elective Difficult Airway: No Anesthesio logist: Ary Villalta MD Resident/C RNA/AA: Dayanara Soto CRNA Preoxygena abiola with 100% O2: Yes C-spine Precaution s Maintained Throughout : Yes Mask Ventilatio n: Easy mask Final Airway Type: Supraglott ic airway Final LMA: Unique LMA Size: 4 Number of Attempts at Approach: 1 POC GLUCOSE Routine 08/22/2018 12:35 PM CDT ECG 12-LEAD Routine 08/21/2018 Preoperative testing 4:27 PM CDT SMEAR REVIEW Routine 08/21/2018 3:59 PM CDT ESTIMATED GFR Routine 08/21/2018 3:59 PM CDT PROTHROMBIN TIME WITH INR Routine 08/21/2018 Preoperative testing 3:59 PM CDT BASIC METABOLIC PANEL Routine 08/21/2018 Preoperative testing 3:59 PM CDT HC COMPLETE BLD COUNT Routine 08/21/2018 Preoperative testing W/AUTO DIFF 3:59 PM CDT XR ABDOMEN 1 VW Routine 08/21/2018 Uric acid nephrolithiasis 3:30 PM CDT Calculus of ureter POC GLUCOSE Routine 03/31/2018 11:32 AM [facility] HEMOGLOBIN & HEMATOCRIT STAT 03/31/2018 10:05 AM [facility] POC GLUCOSE Routine 03/31/2018 7:08 AM [facility] ESTIMATED GFR Routine 03/31/2018 5:09 AM [facility] HEPATIC FUNCTION PANEL Routine 03/31/2018 5:09 AM [facility] HC COMPLETE BLD COUNT Routine 03/31/2018 W/AUTO DIFF 5:09 AM [facility] BASIC METABOLIC PANEL Routine 03/31/2018 5:09 AM [facility] POC GLUCOSE Routine 03/30/2018 10:06 PM [facility] POC GLUCOSE Routine 03/30/2018 4:[address] ABDOMEN PELVIS WO STAT 03/30/2018 CONTRAST 1:07 PM [facility] POC GLUCOSE Routine 03/30/2018 1:04 PM [facility] TOTAL IRON BINDING STAT 03/30/2018 CAPACITY 12:45 PM [facility] FERRITIN LEVEL STAT 03/30/2018 12:45 PM [facility] VITAMIN B12 LEVEL STAT 03/30/2018 12:45 PM [facility] COLONOSCOPY 03/30/2018 Hematochezia 12:00 PM [facility] SURGICAL PATHOLOGY Routine 03/30/2018 REQUEST 11:19 AM [facility] POC GLUCOSE Routine 03/30/2018 5:21 AM [facility] POC GLUCOSE Routine 03/29/2018 10:06 PM [facility] POC GLUCOSE Routine 03/29/2018 3:57 PM [facility] SURGICAL PATHOLOGY Routine 03/29/2018 REQUEST 2:05 PM [facility] ESOPHAGOGASTRODUODENOSCOP 03/29/2018 Anemia, unspecified type Y (EGD) 12:30 PM [facility] Heme positive stool ESTIMATED GFR STAT 03/29/2018 10:10 AM [facility] HEPATIC FUNCTION PANEL STAT 03/29/2018 10:10 AM [facility] HC COMPLETE BLD COUNT STAT 03/29/2018 W/AUTO DIFF 10:10 AM [facility] BASIC METABOLIC PANEL STAT 03/29/2018 10:10 AM [facility] POC GLUCOSE Routine 03/29/2018 6:08 AM [facility] XR ABDOMEN 1 VW PORTABLE Routine 03/28/2018 6:51 PM [facility] POC GLUCOSE Routine 03/28/2018 6:35 PM [facility] POC GLUCOSE Routine 03/28/2018 5:05 PM [facility] POC GLUCOSE Routine 03/28/2018 12:21 PM [facility] HEMOGLOBIN & HEMATOCRIT STAT 03/28/2018 11:34 AM [facility] POC GLUCOSE Routine 03/28/2018 11:15 AM [facility] OCCULT BLOOD, STOOL Routine 03/28/2018 10:45 AM [facility] GASTROINTESTINAL PANEL Routine 03/28/2018 10:45 AM [facility] POC GLUCOSE Routine 03/28/2018 8:57 AM [facility] ESTIMATED GFR Routine 03/28/2018 5:30 AM [facility] HEPATIC FUNCTION PANEL Routine 03/28/2018 5:30 AM [facility] VITAMIN B12 LEVEL Routine 03/28/2018 5:30 AM [facility] FERRITIN LEVEL Routine 03/28/2018 5:30 AM [facility] HEMOGLOBIN A1C Routine 03/28/2018 5:30 AM [facility] HC COMPLETE BLD COUNT Routine 03/28/2018 W/AUTO DIFF 5:30 AM [facility] BASIC METABOLIC PANEL Routine 03/28/2018 5:30 AM [facility] POC GLUCOSE Routine 03/27/2018 9:42 PM [facility] POC GLUCOSE Routine 03/27/2018 5:23 PM [facility] POC GLUCOSE Routine 03/27/2018 11:22 AM [facility] ESTIMATED GFR STAT 03/27/2018 8:31 AM [facility] PHOSPHORUS LEVEL STAT 03/27/2018 8:31 AM [facility] MAGNESIUM LEVEL STAT 03/27/2018 8:31 AM [facility] AMYLASE LEVEL STAT 03/27/2018 8:31 AM [facility] LIPASE LEVEL STAT 03/27/2018 8:31 AM [facility] HC COMPLETE BLD COUNT STAT 03/27/2018 W/AUTO DIFF 8:31 AM [facility] BASIC METABOLIC PANEL STAT 03/27/2018 8:31 AM [facility] LACTIC ACID LEVEL, SEPSIS Timed 03/27/2018 - NOW AND REPEAT 2X EVERY 8:31 AM [facility] 3 HOURS LACTIC ACID LEVEL, SEPSIS Timed 03/27/2018 - NOW AND REPEAT 2X EVERY 5:01 AM [facility] [address] ABDOMEN PELVIS W STAT 03/27/2018 CONTRAST 4:07 AM [facility] BETA HYDROXYBUTYRATE Routine 03/27/2018 3:42 AM [facility] VENOUS BLOOD GAS Routine 03/27/2018 3:42 AM [facility] URINALYSIS SCREEN AND STAT 03/27/2018 MICROSCOPY, WITH REFLEX 2:30 AM [facility] TO CULTURE URINE CULTURE STAT 03/27/2018 2:30 AM [facility] LIPASE LEVEL Routine 03/27/2018 1:57 AM [facility] LACTIC ACID LEVEL, SEPSIS STAT 03/27/2018 - NOW AND REPEAT 2X EVERY 1:57 AM [facility] 3 HOURS ESTIMATED GFR Routine 03/27/2018 1:57 AM [facility] COMPREHENSIVE METABOLIC Routine 03/27/2018 PANEL 1:57 AM [facility] HC COMPLETE BLD COUNT Routine 03/27/2018 W/AUTO DIFF 1:57 AM [facility] ECG ED PRELIMINARY Routine 03/27/2018 INTERPRETATION 1:56 AM [facility] ECG 12-LEAD STAT 03/27/2018 1:48 AM [facility] after 08/29/2017 Results * XR Abdomen 1 Vw (08/28/2018 9:24 AM CDT) Only the most recent of 2 results within the time period is included. Narrative Performed At EXAMINATION:XR ABDOMEN 1 VW HM [facility] CLINICAL HISTORY:N20.0 Calculus of kidney, N20.1 N20.0 COMPARISON:08/21/2018 IMPRESSION: Interval placement of left double-J ureteral stent. Interval lithotripsy. Upper and mid pole calyceal stones are no longer appreciated on this exam. Cluster of lower pole calyceal stones are stable in size and number. Nonobstructive bowel gas pattern with nondilated, gas distended loops of large bowel. Lung bases are free of acute disease. No acute osseous abnormality. Stable calcifications within the pelvis, likely phleboliths. I personally reviewed the images and the resident's findings and agree with the final report. [facility]-[id number] Procedure Note Hm Interface, Radiology Results Incoming - 08/28/2018 10:59 AM CDT EXAMINATION: XR ABDOMEN 1 VW CLINICAL HISTORY: N20.0 Calculus of kidney, N20.1 N20.0 COMPARISON: 08/21/2018 IMPRESSION: Interval placement of left double-J ureteral stent. Interval lithotripsy. Upper and mid pole calyceal stones are no longer appreciated on this exam. Cluster of lower pole calyceal stones are stable in size and number. Nonobstructive bowel gas pattern with nondilated, gas distended loops of large bowel. Lung bases are free of acute disease. No acute osseous abnormality. Stable calcifications within the pelvis, likely phleboliths. I personally reviewed the images and the resident's findings and agree with the final report. [facility]-[id number] Performing Organization Address City/State/Zipcode Phone Number [facility] [address] [place] [address] * POC glucose (08/22/2018 4:09 PM CDT) Only the most recent of 19 results within the time period is included. POC glucose 220 (H) 65 - 100 mg/dL [facility] Comment: [facility] Meter ID: [id number] Macaroni Maker: Angy Mayes Performing Organization Address City/State/Zipcode Phone Number [facility] DEPARTMENT OF [address] [place] [id number] PATHOLOGY AND GENOMIC MEDICINE [address] [place], [place] [phone] [place] [address] * ECG 12 lead (08/21/2018 4:27 PM CDT) Only the most recent of 2 results within the time period is included. Ventricular rate 69 [facility] Atrial rate 69 [facility] WY interval 170 [facility] QRSD interval 90 [facility] QT interval 426 [facility] QTC interval 456 [facility] P axis 1 74 [facility] QRS axis 1 -3 [facility] T wave axis 14 [facility] EKG impression Normal sinus rhythm-Voltage [facility] criteria for left ventricular hypertrophy-Nonspecific T wave abnormality-Abnormal ECG-In automated comparison with ECG of 27-MAR-2018 01:48,-No significant change was found- Narrative Performed At Performing Organization Address City/State/Zipcode Phone Number [facility] [address] [place] [address] * Smear review (08/21/2018 3:59 PM CDT) Platelet slide review Amanda adequate [facility] Basophilic stippling Occasional [facility] Target cells Occasional [facility] Ovalocytes 1+ [facility] Enlarged platelets 1+ [facility] Performing Organization Address City/[facility] Cent[facility] Phone Number [facility] DEPARTMENT OF [address] [facility] [place] [address] PATHOLOGY AND GENOMIC MEDICINE [address] * Estimated GFR (08/21/2018 3:59 PM CDT) Only the most recent of 6 results within the time period is included. Estimated GFR 48 (A) mL/min/1.73 m2 [facility] Comment: [facility] CatergoryUnitsInte rpretation G1 >=90 Normal or high G2 60-89Mildly decreased [id number] Mildly to moderately decreased D1s10-02 Moderately to severely decreased G4 15-29Severely decreased G5 <15Kidney failure The eGFR was calculated using the Chronic Kidney Disease Epidemiology Collaboration (CKD-EPI) equation. Interpretation is based on recommendations of the National Kidney Foundation-Kidney Disease Outcomes Quality Initiative (NKF-KDOQI) published in 2014. Specimen Plasma specimen Performing Organization Address City/[facility]/Zipcode Phone Number [facility] DEPARTMENT OF [address] [place] [phone] PATHOLOGY AND GENOMIC MEDICINE [address] * Prothrombin time with INR (08/21/2018 3:59 PM CDT) Prothrombin time 12.3 11.5 - 14.5 sec [facility] INR 0.94 [facility] Comment: [facility] For patients on anticoagulant therapy, reference ranges below: Indication: INR Value Treatment of Venous Thrombosis, 2.0-3.0 pulmonary emboli, or prophylaxis of a venous thrombosis, or systemic emboli. High dose, high risk patients 3.0-4.5 with mechanical valves. NOTE:INR values over 3.0 are sometimes associated with gastrointestinal hemorrhage, especially values over 4.0. Specimen Blood Performing Organization Address City/State/Zipcode Phone Number [facility] DEPARTMENT OF [address] [place] [address] PATHOLOGY AND GENOMIC MEDICINE [facility] [address]rav[address] [place], [place] [phone] [place] [address] * CBC with platelet and differential (08/21/2018 3:59 PM CDT) Only the most recent of 6 results within the time period is included. WBC 7.8 4.2 - 11.0 k/uL [facility] RBC 5.69 4.04 - 5.86 m/uL [facility] HGB 11.1 (L) 11.5 - 15.3 g/dL [facility] HCT 36.8 34.0 - 45.0 % [facility] MCV 64.7 (L) 80.0 - 98.0 fL [facility] MCH 19.5 (L) 27.0 - 34.0 pg [facility] MCHC 30.2 (L) 31.5 - 36.5 g/dL [facility] RDW - SD 39.0 37.0 - 51.0 fL [facility] MPV 11.0 (H) 7.4 - 10.4 fL [facility] Platelet count 304 150 - 400 k/uL [facility] Nucleated RBC 0.00 /100 WBC [facility] Neutrophils 51.8 36.0 - 66.0 % [facility] Lymphocytes 37.0 24.0 - 44.0 % [facility] Monocytes 8.3 (H) 0.0 - 6.0 % [facility] Eosinophils 1.5 0.0 - 6.0 % [facility] Basophils 0.9 0.0 - 1.2 % [facility] Immature granulocytes 0.5 0.0 - 1.0 % [facility] Specimen Blood Performing Organization Address City/[facility]/Zipcode Phone Number [address] [place] [address] PATHOLOGY AND GENOMIC MEDICINE [address] [place] * Basic metabolic panel (08/21/2018 3:59 PM CDT) Only the most recent of 5 results within the time period is included. Sodium 142 135 - 150 mEq/L [facility] Potassium 3.0 (L) 3.5 - 5.0 mEq/L [facility] Chloride 99 98 - 112 mEq/L [facility] CO2 29 24 - 31 mmol/L [facility] Anion gap 14@ANIO 7 - 15 mEq/L [facility] BUN 14 7 - 18 mg/dL [facility] Creatinine 1.30 (H) 0.50 - 0.90 mg/dL [facility] Glucose 225 (H) 65 - 100 mg/dL [facility] Calcium 10.0 8.8 - 10.2 mg/dL [facility] Specimen Plasma specimen Performing Organization Address City/[facility] Centercode Phone Number [place] [address] [place] [address] PATHOLOGY AND GENOMIC MEDICINE [address] [place] * Hemoglobin & hematocrit (03/31/2018 10:05 AM [facility]) Only the most recent of 2 results within the time period is included. HGB 9.2 (L) 11.5 - 15.3 g/dL [facility] DEPARTMENT OF PATHOLOGY AND GENOMIC MEDICINE HCT 31.0 (L) 34.0 - 45.0 % [facility] DEPARTMENT OF PATHOLOGY AND GENOMIC MEDICINE Specimen Blood Performing Organization Address City/[facility] Centercode Phone Number [facility] [address] [place] [address] PATHOLOGY AND GENOMIC MEDICINE * Hepatic function panel (03/31/2018 5:09 AM [facility]) Only the most recent of 3 results within the time period is included. Albumin 3.3 (L) 3.5 - 5.0 g/dL [facility] DEPARTMENT OF PATHOLOGY AND GENOMIC MEDICINE Total bilirubin 0.3 0.2 - 1.2 mg/dL [facility] DEPARTMENT OF PATHOLOGY AND GENOMIC MEDICINE Bilirubin direct <0.2 0.0 - 0.4 mg/dL [facility] DEPARTMENT OF PATHOLOGY AND GENOMIC MEDICINE Alkaline phosphatase 48 0 - 104 U/L [facility] DEPARTMENT OF PATHOLOGY AND GENOMIC MEDICINE Protein 6.3 6.3 - 8.3 g/dL [facility] DEPARTMENT OF PATHOLOGY AND GENOMIC MEDICINE ALT 9 5 - 50 U/L [facility] DEPARTMENT OF PATHOLOGY AND GENOMIC MEDICINE AST 16 10 - 35 U/L [facility] DEPARTMENT OF PATHOLOGY AND GENOMIC MEDICINE Specimen Plasma specimen Performing Organization Address City/[facility] Centercoaz Phone Number [place] [address] [place] [address] PATHOLOGY AND [employer] MEDICINE * CT Abdomen Pelvis Wo Contrast (03/30/2018 1:07 PM [facility]) Narrative Performed At EXAMINATION:CT ABDOMEN PELVIS WO [...] layering gallstones versus biliary sludge Scattered atherosclerosis [id number] Procedure Note Hm Interface, Radiology Results Incoming - 03/30/2018 1:22 PM [facility] EXAMINATION: CT ABDOMEN PELVIS WO CONTRAST CLINICAL [...] layering gallstones versus biliary sludge Scattered atherosclerosis [id number] Performing Organization Address City/State/Zipcode Phone Number [facility] [address] [place] [address] * Total iron binding capacity (03/30/2018 12:45 PM [facility]) Iron level 41 37 - 148 ug/dL [facility] DEPARTMENT OF PATHOLOGY AND GENOMIC MEDICINE Iron binding capacity 268 (L) 271 - 474 ug/dL [facility] DEPARTMENT OF PATHOLOGY AND GENOMIC MEDICINE % Saturation 15.3 15.0 - 38.0 % [facility] DEPARTMENT OF PATHOLOGY AND GENOMIC MEDICINE Specimen Plasma specimen Performing Organization Address [facility] Phone Number [address] [place] [phone] PATHOLOGY AND [employer] MEDICINE * Ferritin level (03/30/2018 12:45 PM [facility]) Only the most recent of 2 results within the time period is included. Ferritin level 195 (H) 13 - 150 ng/mL [facility] DEPARTMENT OF PATHOLOGY AND GENOMIC MEDICINE Specimen Serum Performing Organization Address [facility] Centercode Phone Number [facility] DEPARTMENT [address] [place] [phone] PATHOLOGY AND GENOMIC MEDICINE * Vitamin B12 level (03/30/2018 12:45 PM [facility]) Only the most recent of 2 results within the time period is included. Vitamin B12 1,407 (H) 231 - 931 pg/mL [facility] DEPARTMENT OF Comment: PATHOLOGY AND Significant overlap exists GENOMIC MEDICINE between normal and deficiency states. However, most patients with deficiencies will have Serum B12 <200 pg/mL. Specimen Serum Performing Organization Address [facility] Centercode Phone Number [facility] [address] [place] [address]. [place] [phone] PATHOLOGY AND GENOMIC MEDICINE * Surgical pathology request (03/30/2018 11:19 AM [facility]) Only the most recent of 2 results within the time period is included. [facility] DEPARTMENT OF PATHOLOGY AND GENOMIC MEDICINE Surgical pathology report See link below for PDF Lab [facility] DEPARTMENT OF Report PATHOLOGY AND GENOMIC MEDICINE Result status This is Final Report for [facility] DEPARTMENT OF [id number] PATHOLOGY AND GENOMIC MEDICINE Performing Organization Address City/State/Zipcode Phone Number [facility] DEPARTMENT OF [address] [place] [address] PATHOLOGY AND GENOMIC MEDICINE * XR Abdomen 1 Vw Portable (03/28/2018 6:51 PM [facility]) Narrative Performed At EXAMINATION:XR ABDOMEN 1 VW PORTABLE [facility] CLINICAL HISTORY:diarrhea COMPARISON:March 27, 2018 CT abdomen IMPRESSION: The bowel gas pattern is nonobstructive. No gross colonic or small bowel wall thickening. No evidence of ascites. Grossly intact skeleton. [id number]-[id number] Procedure Note Hm Interface, Radiology Results Incoming - 03/28/2018 7:06 PM [facility] EXAMINATION: XR ABDOMEN 1 VW PORTABLE CLINICAL HISTORY: diarrhea COMPARISON: March 27, 2018 CT abdomen IMPRESSION: The bowel gas pattern is nonobstructive. No gross colonic or small bowel wall thickening. No evidence of ascites. Grossly intact skeleton. [id number]-[id number] Performing Organization Address City/[facility]/Zipcode Phone Number [facility] [address] [place] [address] * Gastrointestinal panel (03/28/2018 10:45 AM [facility]) Gastrointestinal panel Positive for C. difficile [facility] DEPARTMENT OF toxin PATHOLOGY AND GENOMIC MEDICINE [...] Nonpreserved Performing Organization Address City/State/Zipcode Phone Number [facility] DEPARTMENT OF [address] [place] [address] PATHOLOGY AND GENOMIC MEDICINE * Occult blood, stool (03/28/2018 10:45 AM [facility]) Occult blood, stool Positive for Occult blood (A) [facility] DEPARTMENT OF Comment: PATHOLOGY AND Specimen Information GENOMIC MEDICINE Specimen Source: Stool Specimen Site: Nonpreserved Specimen Stool - Nonpreserved Performing Organization Address [facility] Centercode Phone Number [facility] [address] [place] [phone] PATHOLOGY AND GENOMIC MEDICINE * Hemoglobin A1c (03/28/2018 5:30 AM LOBBY PORTER) Hemoglobin A1C 7.2 (H) 4.0 - 6.0 % [facility] DEPARTMENT OF Comment: PATHOLOGY AND GENOMIC MEDICINE Less than 6% - Goal of therapy for Type II Diabetes Less than 7%-Goal of therapy for Type I Diabetes Less than 8%-Accepta ble control for Type I or Type II Diabetes Greater than 8%-Unacceptabl e control; action indicated. ([id number]) Specimen Blood Performing Organization Address [facility] Phone Number [facility] DEPARTMENT [address] [phone] PATHOLOGY AND GENOMIC MEDICINE * Lactic acid level, SEPSIS - Now and repeat 2x every 3 hours (03/27/2018 8:31 AM LOBBY PORTER) Only the most recent of 3 results within the time period is included. Lactic acid 1.5 0.5 - 2.2 mmol/L [facility] DEPARTMENT OF PATHOLOGY AND GENOMIC MEDICINE Specimen Blood Performing Organization Address [facility] Cent[facility]ode Phone Number [facility] DEPARTMENT [address] [place] [address] [address] [place] [phone] PATHOLOGY AND GENOMIC MEDICINE * Phosphorus level (03/27/2018 8:31 AM LOBBY PORTER) Phosphorus 2.5 2.4 - 4.5 mg/dL [facility] DEPARTMENT OF PATHOLOGY AND GENOMIC MEDICINE Specimen Plasma specimen Performing Organization Address [facility] Cent[facility] [address] PATHOLOGY AND GENOMIC MEDICINE * Magnesium level (03/27/2018 8:31 AM LOBBY PORTER) Magnesium 1.40 (L) 1.60 - 2.40 mg/dL [facility] DEPARTMENT OF PATHOLOGY AND GENOMIC MEDICINE Specimen Plasma specimen Performing Organization Address City/[facility] Centerc[place] [address] PATHOLOGY AND [facility] * Lipase level (03/27/2018 8:31 AM LOBBY PORTER) Only the most recent of 2 results within the time period is included. Lipase 28 13 - 60 U/L [facility] DEPARTMENT OF PATHOLOGY AND GENOMIC MEDICINE Specimen Plasma specimen Performing Organization Address [facility] [place] [address] PATHOLOGY AND [facility] * Amylase level (03/27/2018 8:31 AM LOBBY PORTER) Amylase 53 28 - 100 U/L [facility] PATHOLOGY AND GENOMIC MEDICINE Specimen Plasma specimen Performing Organization Address [facility] [place] [address] PATHOLOGY AND [facility] * CT Abdomen Pelvis W Contrast (03/27/2018 4:07 AM LOBBY PORTER) Narrative Performed At Examination:CT ABDOMEN PELVIS W [...] 3. Small umbilical hernia containing only fat. [facility]-[id number] Procedure Note Interface, Radiology Results Incoming - 03/27/2018 4:14 AM LOBBY PORTER Examination: CT ABDOMEN PELVIS W CONTRAST Clinical [...] 3. Small umbilical hernia containing only fat. [facility]-[id number] Performing Organization Address City/State/Zipcode Phone Number [facility] [address] [place] [address] * Beta hydroxybutyrate (03/27/2018 3:42 AM LOBBY PORTER) Beta hydroxybutyrate 0.54 (H) 0.02 - 0.27 mmol/L [facility] DEPARTMENT OF PATHOLOGY AND GENOMIC MEDICINE Specimen Blood Performing Organization Address City/[facility] Cent[facility]ode Phone Number [place] [address] [place] [address] PATHOLOGY AND GENOMIC MEDICINE * Venous blood gas (03/27/2018 3:42 AM LOBBY PORTER) Macaroni Maker LMS [facility] DEPARTMENT OF PATHOLOGY AND GENOMIC MEDICINE Collection site LAC [facility] DEPARTMENT OF PATHOLOGY AND GENOMIC MEDICINE O2 therapy ROOM AIR [facility] DEPARTMENT OF PATHOLOGY AND GENOMIC MEDICINE pH, venous 7.341 7.320 - 7.[address] [facility] DEPARTMENT OF PATHOLOGY AND GENOMIC MEDICINE pCO2, venous 39.6 (L) 45.0 - 51.[address] [facility] DEPARTMENT OF PATHOLOGY AND GENOMIC MEDICINE pO2, venous 27.4 25.0 - 40.[address] [facility] DEPARTMENT OF PATHOLOGY AND GENOMIC MEDICINE O2 saturation, venous 45.9 40.0 - 70.0 % [facility] DEPARTMENT OF PATHOLOGY AND GENOMIC MEDICINE Base excess, venous -4.4 (L) -2.0 - 2.0 mEq/L [facility] DEPARTMENT OF PATHOLOGY AND GENOMIC MEDICINE Bicarbonate 21.4 21.0 - 28.0 mEq/L [facility] DEPARTMENT OF PATHOLOGY AND GENOMIC MEDICINE O2 content 5.4 VOL% [facility] DEPARTMENT OF PATHOLOGY AND GENOMIC MEDICINE Carboxyhemoglobin 0.8 0.0 - 1.4 % [facility] DEPARTMENT OF Comment: PATHOLOGY AND Reference Ranges: GENOMIC MEDICINE Carboxyhemoglobin Non smoker: 0.0 - 2.0% Smoker: 2.1 - 5.0% Heavy smoker: 5.1 - 9% Methemoglobin 1.9 (H) 0.0 - 1.0 % [facility] DEPARTMENT OF PATHOLOGY AND GENOMIC MEDICINE Hemoglobin, blood gas 8.6 (L) 12.0 - 16.0 g/dL [facility] DEPARTMENT OF PATHOLOGY AND GENOMIC MEDICINE Specimen Blood Performing Organization Address City/State/Zipcode Phone Number [place] [address] [place] [address] PATHOLOGY AND GENOMIC MEDICINE * Urinalysis screen and microscopy, with reflex to culture (03/27/2018 2:30 AM LOBBY PORTER) Specimen site Catheterized [facility] DEPARTMENT OF PATHOLOGY AND GENOMIC MEDICINE Color, UA Straw [facility] DEPARTMENT OF PATHOLOGY AND GENOMIC MEDICINE Appearance, UA Clear [facility] DEPARTMENT OF PATHOLOGY AND GENOMIC MEDICINE Specific gravity, UA 1.010 1.001 - 1.[address] [facility] DEPARTMENT OF PATHOLOGY AND GENOMIC MEDICINE pH, UA 6.0 5.0 - 8.[address] [facility] DEPARTMENT OF PATHOLOGY AND GENOMIC MEDICINE Protein, UA Negative Negative [facility] DEPARTMENT OF PATHOLOGY AND GENOMIC MEDICINE Glucose, UA Negative Negative [facility] DEPARTMENT OF PATHOLOGY AND GENOMIC MEDICINE Ketones, UA 1+ (A) Negative [facility] DEPARTMENT OF PATHOLOGY AND GENOMIC MEDICINE Bilirubin, UA Negative Negative [facility] DEPARTMENT OF PATHOLOGY AND GENOMIC MEDICINE Blood, UA Negative Negative [facility] DEPARTMENT OF PATHOLOGY AND GENOMIC MEDICINE Nitrite, UA Negative Negative [facility] DEPARTMENT OF PATHOLOGY AND GENOMIC MEDICINE Urobilinogen, UA Negative <2.[address] [facility] DEPARTMENT OF PATHOLOGY AND GENOMIC MEDICINE Leukocyte esterase, UA Negative Negative [facility] DEPARTMENT OF PATHOLOGY AND GENOMIC MEDICINE WBC, UA 1 0 - 5 /HPF [facility] DEPARTMENT OF PATHOLOGY AND GENOMIC MEDICINE RBC, UA 1 0 - 5 /HPF [facility] DEPARTMENT OF PATHOLOGY AND GENOMIC MEDICINE Bacteria, UA None seen None seen [facility] DEPARTMENT OF PATHOLOGY AND GENOMIC MEDICINE Yeast, UA None seen [facility] DEPARTMENT OF PATHOLOGY AND GENOMIC MEDICINE Yeast with pseudohyphae, None seen [facility] DEPARTMENT [facility] PATHOLOGY AND GENOMIC MEDICINE Specimen Urine Performing Organization Address City/[facility] [place] [address] PATHOLOGY AND [facility] MEDICINE * Urine culture (03/27/2018 2:30 AM LOBBY PORTER) Urine culture SEE COMMENTComment: [facility] DEPARTMENT OF Bacteriuria screen negative. PATHOLOGY AND [facility] MEDICINE Specimen Urine Performing Organization Address [facility] Cent[facility] [address] PATHOLOGY AND GENOMIC MEDICINE * Comprehensive metabolic panel (03/27/2018 1:57 AM LOBBY PORTER) Sodium 140 135 - 150 mEq/L [facility] DEPARTMENT OF PATHOLOGY AND GENOMIC MEDICINE Potassium 3.3 (L) 3.5 - 5.0 mEq/L [facility] DEPARTMENT OF PATHOLOGY AND GENOMIC MEDICINE Chloride 104 98 - 112 mEq/L [facility] DEPARTMENT OF PATHOLOGY AND GENOMIC MEDICINE CO2 17 (L) 24 - 31 mmol/L [facility] DEPARTMENT OF PATHOLOGY AND GENOMIC MEDICINE Anion gap 19@ANIO (H) 7 - 15 mEq/L [facility] DEPARTMENT OF PATHOLOGY AND GENOMIC MEDICINE BUN 15 7 - 18 mg/dL [facility] DEPARTMENT OF PATHOLOGY AND GENOMIC MEDICINE Creatinine 1.20 (H) 0.50 - 0.90 mg/dL [facility] DEPARTMENT OF PATHOLOGY AND GENOMIC MEDICINE Glucose 243 (H) 65 - 100 mg/dL [facility] DEPARTMENT OF PATHOLOGY AND GENOMIC MEDICINE Calcium 10.2 8.8 - 10.2 mg/dL [facility] DEPARTMENT OF PATHOLOGY AND GENOMIC MEDICINE Protein 7.5 6.3 - 8.3 g/dL [facility] DEPARTMENT OF PATHOLOGY AND GENOMIC MEDICINE Albumin 4.1 3.5 - 5.0 g/dL [facility] DEPARTMENT OF PATHOLOGY AND GENOMIC MEDICINE A/G ratio 1.2 0.7 - 3.[address] [facility] DEPARTMENT OF PATHOLOGY AND GENOMIC MEDICINE Alkaline phosphatase 65 0 - 104 U/L [facility] DEPARTMENT OF PATHOLOGY AND GENOMIC MEDICINE AST 18 10 - 35 U/L [facility] DEPARTMENT OF PATHOLOGY AND GENOMIC MEDICINE ALT 16 5 - 50 U/L [facility] DEPARTMENT OF PATHOLOGY AND GENOMIC MEDICINE Total bilirubin 0.4 0.2 - 1.2 mg/dL [facility] DEPARTMENT OF PATHOLOGY AND GENOMIC MEDICINE Specimen Plasma specimen Performing Organization Address City/State/Zipcode Phone Number [place] [address] [place] [address] PATHOLOGY AND GENOMIC MEDICINE * ECG ED Preliminary Interpretation - NOT AN ORDER (03/27/2018 1:56 AM LOBBY PORTER) Narrative Performed At Leonidas Rosa MD 03/27/20187:38 PM ECG ED Preliminary Interpretation - Not an Order Performed by: LEONIDAS ROSA Authorized by: LEONIDAS ROSA ECG reviewed by ED Physician in the absence of a fur joiner: yes Interpretation: Interpretation: normal Rate: ECG rate:67 ECG rate assessment: normal Rhythm: Rhythm: sinus rhythm Ectopy: Ectopy: none QRS: QRS axis:Normal QRS intervals:Normal Conduction: Conduction: normal ST segments: ST segments:Normal T waves: T waves: normal Other findings: Other findings: LVH Comments: Completed at 0148 on 03/27/18 after 08/29/2017 Insurance Payer Benefit Subscriber ID Type Phone Address Plan / Group [employer] MEDICARE UNITED xxxxxxxxx [facility] MEDICARE (Home) [facility] [place] [id number] Advance Directives Patient has advance care planning documents on file. For more information, pleas e contact: Smith Jaeger [address] [place] [address]
[2018-08-30 11:22] LABS: ANION GAP 12.6 mmol/L (8-16); CALCIUM 9.6 mg/dL (8.4-10.2); CREATININE, SERUM 1.38 mg/dL (0.57-1.11)
[2018-08-30 11:29] LABS: POTASSIUM 2.6 mmol/L (3.5-5.1)
--- NOTE | 2018-08-30 11:50 | Diagnostic Imaging Report ---
EXAMINATION: PA and lateral views of the chest. COMPARISON: None CLINICAL HISTORY: Preoperative study for cystoscopy DISCUSSION: Lines/tubes: None. Lungs: The lungs are well inflated and clear. There is no evidence of pneumonia or pulmonary edema. Pleura: There is no pleural effusion or pneumothorax. Heart and mediastinum: Tortuous thoracic aorta with otherwise unremarkable cardiomediastinal contour. Bones and soft tissues: No acute bony abnormalities. Ureteral stent partially visualized. IMPRESSION: No acute cardiopulmonary abnormalities. Signed by: Dr. Jamir Copeland M.D. on 08/30/2018 11:46 AM
--- NOTE | 2018-08-30 14:20 | Operative Report ---
DATE OF PROCEDURE: 08/30/2018 SURGEON: Donnie Carter MD PREOPERATIVE DIAGNOSES: 1. Left lower pole calyceal calculus cluster, 10 x 8 mm. 2. Left double-J ureteral stent. POSTOPERATIVE DIAGNOSES: 1. Left lower pole calyceal calculus cluster, 10 x 8 mm. 2. Left double-J ureteral stent. OPERATIONS: 1. Left lower pole renal extracorporeal shock wave lithotripsy. 2. Cystoscopy and left double-J stent removal. ANESTHETIC: General. INDICATIONS: Ms. Quijano is a 72-year-old female, who presented with a chief complaint of pain on the left side. Workup showed that she had multiple calculi in the upper, middle, and lower pole calyces. She underwent cystoscopy and stent placement and left upper and mid pole calyceal calculi ESWL about two weeks ago. She presented at this time for left lower pole calyceal ESWL and stent removal since old upper and mid pole calices were gone. DESCRIPTION OF PROCEDURE: This patient was placed on the table in the supine position and stone in the lower pole was brought into position between F1 and F2 of the fluoroscopic monitor. Lithotripsy was started, starting at 2 kV kilovolts and slowly and gradually increased to 7 kV. Observation of the stone pulverization was done at 200 and 250 shocks and at 3000 shocks, it was felt that the stones have completely pulverized. This patient was then placed on the table in the lithotomy position and was prepped and draped in a sterile manner after satisfactory anesthesia. A #22-Tristanian cystoscope was used and cystourethroscopy was performed and the tail end of the stent was protruding from the left ureteral orifice, which is normal. Under direct vision and fluoroscopic control, the tail end of the stent was grasped and removed without difficulty. The bladder was drained. Cystoscope was removed. The patient is to return to the office in two weeks and at that time, a KUB will be performed to see if all the stones are gone. She will need ureteroscopy and stone removal of a small stone on the right lower ureter. Donnie Carter MD MA/JOLIE /[id number]
[2018-08-30 14:55] VITALS: BP 137/86
== END | disposition home or self-care (01) ==
LOC: OR 09:34
PROVIDERS: ATTEND Specialist
DX: N20.0 Calculus of kidney (principal); Z46.6 Encounter for fitting and adjustment of urinary device; I10 Essential (primary) hypertension; E11.9 Type 2 diabetes mellitus without complications; M54.2 Cervicalgia; Z01.810 Encounter for preprocedural cardiovascular examination; Z79.84 Long term (current) use of oral hypoglycemic drugs
CPT/HCPCS: 36415; 50590; 52310; 71046; 80048; 82948; J1100; J1956; J2001; J2250; J2405; J2704; 84132